=== PATIENT | male | born 2000 ===

== ENCOUNTER 2025-09-20 09:44 | Outpatient (AMB) | payer OTHER, SELFPAY ==
--- NOTE | 2025-09-20 10:01 | MHC.PC.OV ---
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: No Accompanied by: Self / Same As Patient Allergies No Known Allergies Allergy (Verified 09/20/25 10:22) Medication List - Last Reconciled 09/20/25 by KISHOR Alberts No Known Home Meds Tobacco use date assessed: 09/20/25 Dental Screening Dental Screen Date: 09/20/25 Did you have a dental visit in the last 12 months?: Yes Did you have a dental problem in the last 6 months where you did not have access to dental care?: No Was dental information given to patient?: Patient has dentist HPI HPI Comments History of Present Illness Details Previous PCP: Adult medicine, [facility] Last visit: unsure Last PE:about year ago Specialist: no-reports that he used see GI for concerns of taking too long to more his bowels Past medical history: Asthma sports induced, resolved after stopped playing, constipation Surgical history: no Medications: Family HX: Father, HTN Problem: The patient is a 25 year old individual presenting to [facility]. The last physical exam was approximately one year ago. The patient has no past surgical history and is not currently taking any medications. The patient has a history of asthma that was primarily triggered by sports when the patient was more active. Currently, the patient does not take any medication for asthma and reports that symptoms, such as coughing, can occur with a common cold. The patient reports a lifelong history of constipation, characterized by taking a long time to have a bowel movement and difficulty evacuating stool, even when it is soft. There is a history of an anal fissure, for which the patient previously saw a specialist. A previously prescribed fiber supplement improved symptoms, but the patient now takes it only sometimes. The patient reports a past history of high cholesterol, which was improving with dietary modifications. The patient's father has hypertension. Health Maintenance The patient is establishing care. Generalized lab work was ordered, including checks of kidney, liver, and heart function, as well as cholesterol levels. A follow-up visit is scheduled in approximately seven weeks to perform a complete physical and review the laboratory results. It was clarified that STD testing is not performed routinely and must be specifically requested; the patient declined this testing at this time. 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 - Family status: The patient is and has a daughter. - Exercise: The patient is not very active currently but is planning to start working out. - Nutrition: The patient reports eating rice pretty much every day, consumes fruits and vegetables, drinks some water, and consumes one Monster energy drink five days a week. Results - Labs: The patient reports a past history of high cholesterol that had been improving with dietary changes. 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 1. Little interest or pleasure in doing things: not at all 2. Feeling down, depressed, or hopeless: not at all 3. Trouble falling or staying asleep, or sleeping too much: several days 4. Feeling tired or having little energy: more than half the days 5. Poor appetite or overeating: not at all 6. Feeling bad about yourself - or that you are a failure or have let yourself or your family down: not at all 7. Trouble concentrating on things, such as reading the newspaper or watching television: not at all 8. Moving or speaking so slowly that other people could have noticed. Or the opposite - being so fidgety or restless that you have been moving around a lot more than usual: not at all 9. Thoughts that you would be better off or of hurting yourself in some way: not at all Total score: 3 Depression Screening Interpretation: Negative Depression Screening Done: Yes 13068 - PHQ-9 Billing: Yes Source: Developed by Drs. Jimbo Zazueta, Brandi Allen, Julián Bowens and colleagues, with an educational renée from [employer]. Thrive Questionnaire Date Thrive assessed: 09/20/25 I am a: Patient What is your living situation today?: I have a steady place to live Within the past 12 months, did the food you bought not last and you didn't have the money to get more?: I choose not to answer this question Within the past 12 months, did you worry whether your food would run out before you got money to buy more?: I choose not to answer this question Do you have trouble paying for medicines?: I choose not to answer this question Do you have trouble getting transportation to medical appointments?: No Do you have trouble paying your heating and electricity bill?: No Do you have trouble taking care of your child, family member or friend?: No Do you have trouble with day-to-day activities such as bathing, preparing meals, shopping, managing finances, etc.?: No Are you currently unemployed and looking for a job?: No Are you interested in more education?: Yes Please select the resources that you would like help with: Food and Childcare Currently or been in a relationship where the following occur: No concerns reported THRIVE Score: 0 AUDIT C Alcohol Use Questionnaire (AUDIT-C) 1. How often do you have a drink containing alcohol?: 2-3 times a week 2. How many drinks containing alcohol do you have on a typical day when you are drinking?: 3 or 4 3. How often do you have six or more drinks on one occasion?: Monthly Total Score: 6 KAROLINA-7 AMB Questionnaire KAROLINA-7 Date KAROLINA - 7 assessed: 09/20/25 Feeling nervous, anxious, or on edge: 1 = Several days Not being able to stop or control worryin = Several days Worrying too much about different things: 2 = More than half the days Trouble relaxin = Several days Being so restless that it is hard to sit still: 1 = Several days Becoming easily annoyed or irritable: 1 = Several days Feeling afraid as if something awful might happen: 0 = Not at all Total KAROLINA-7 score (0-4 normal; 5-9 mild; 10-14 moderate; 15-21 severe): 7 Source: Developed by Drs. Jimbo Zazueta, Brandi Allen, Julián Bowens and colleagues, with an educational renée from [employer]. KAROLINA-7 Assessment Billing KAROLINA-7 Assessment Tool: KAROLINA-7 Assessment 80184 Review of Systems Narrative Review of Systems - General: Denies any acute concerns. - Cardiovascular: Denies chest pain and palpitations. - Respiratory: Denies shortness of breath. - Gastrointestinal: Reports lifelong constipation and difficulty with bowel movements. - Denies abdominal pain or recent changes in bowel habits. - Denies rectal bleeding currently, but confirms a past history of an anal fissure. - Neurological: Denies dizziness. Const Denies headache(s) Eyes Denies loss of vision ENT Denies vertigo, Denies dizziness, Denies headache(s) and Denies sore throat Card Denies chest pain, Denies leg edema and Denies lightheadedness Resp Denies cough, Denies hemoptysis and Denies wheezing GI Denies abdominal pain, Denies melena, Denies constipation, Denies diarrhea and Denies vomiting Denies dysuria, Denies urinary frequency and Denies urinary urgency Musc Denies arthralgias, Denies joint swelling, Denies numbness and Denies tingling Neuro Denies Abnormal speech present, Denies behavioral changes, Denies vertigo, Denies dizziness, Denies headache(s), Denies loss of vision, Denies memory loss, Denies numbness and Denies tingling Psych Denies anxiety, Denies behavioral changes, Denies depression, Denies memory loss and Denies panic attacks Frantz/Lymph Denies easy bleeding and Denies easy bruising Aller/Immun Denies wheezing Physical exam (Primary Care) Vital Signs: Last Vital Signs Temp 97.3 F 09/20/25 10:02 Pulse 64 09/20/25 10:02 Resp 18 09/20/25 10:02 BP 128/70 09/20/25 10:02 Pulse Ox 98 09/20/25 10:02 Oxygen Delivery Method Room Air 09/20/25 10:02 BMI result Body Mass Index 28.1 Tobacco/Smoking Status: Tobacco use Status Tobacco use date assessed 09/20/25 09/20/25 10:10 Patient Tobacco Use Status Never used Tobacco 09/20/25 10:10 e-Cigarette/Vaping Use Never Used 09/20/25 10:10 PHQ-9: PHQ-9 Score PHQ-9: Total score 3 09/20/25 10:36 Depression Screening Interpretation: Negative Thrive Assessment: Date of Thrive Assessment Date Thrive assessed 09/20/25 09/20/25 10:10 Currently or been in a relationship where the following occur: No concerns reported Narrative Physical Exam - Eyes: Pupils are reactive to light. - Respiratory: Lungs are clear to auscultation bilaterally. - Abdomen: Soft and non-tender to palpation. Const General: healthy appearing, no acute distress, alert and awake Nutritional Appearance: well nourished Orientation/consciousness: oriented to person, oriented to place and oriented to time HENMT Ears: TM's normal bilaterally General nose exam: Normal nasal mucous membranes and turbinates present Eyes Conjunctivae: conjunctivae normal Sclerae: sclerae normal Pupils: Equal, round and reactive pupils present Neck Neck: Yes no lymphadenopathy and Yes no JVD Thyroid: Thyroid normal Carotids: no bruits Resp Effort & Inspection: normal respiratory effort and not tachypneic Auscultation: no crackles, no rales, no rhonchi and no wheezes Cardio Rate: regular rate Rhythm: regular rhythm Heart sounds: no murmurs and normal S1 and S2 GI Palpation (GI): Soft to palpation, nontender, no hepatomegaly and no splenomegaly Auscultation: normal bowel sounds Skin General skin exam: no rashes or lesions noted and dry skin Neuro General: oriented to person, oriented to place and oriented to time Cranial nerves: Yes Equal, round and reactive pupils present Speech: No Abnormal speech present Gait exam (Neuro): Normal gait present Motor exam (neuro): no tremor noted Extrem Right upper extremity: full ROM Left upper extremity: full ROM Right lower extremity: full ROM; no edema Left lower extremity: full ROM; no edema Psych Mental Status: mental status grossly normal Speech and movement: Normal speech and movement present Affect: normal affect Attitude: cooperative Thought process: Normal thought process present Coding Level of Care Code New Pt Level 4 (95889) Diagnoses Constipation, unspecified constipation type K59.00 Constipation type: unspecified constipation type Mild intermittent asthma without complication J45.20 Asthma severity: mild Asthma persistence: intermittent Asthma complication type: uncomplicated Additional Codes PHQ-9 - 77780 - PHQ-9 Billing: Yes ([id number]) KAROLINA-7 Assessment Billing - KAROLINA-7 Assessment Tool: KAROLINA-7 Assessment 36119 ([id number]) Time Spent (min) 35 Assessment & Plan Assessment & Plan (1) Constipation: Code(s): K59.00 - Constipation, unspecified Category: Medical Qualifiers: Constipation type: unspecified constipation type Qualified Code(s): K59.00 - Constipation, unspecified (2) Asthma: Code(s): J45.909 - Unspecified asthma, uncomplicated Category: Medical Qualifiers: Asthma severity: mild Asthma persistence: intermittent Asthma complication type: uncomplicated Qualified Code(s): J45.20 - Mild intermittent asthma, uncomplicated Plan Plan Patient was informed and verbally consented to the use of an ambient scribe for clinic note documentation during this visit. 1. Chronic Constipation The patient's chronic constipation is likely multifactorial, including a lifelong predisposition and a diet high in rice. A prescription for Miralax powder was sent, with instructions to take one capful mixed in liquid daily to maintain regularity. The patient was advised that the dose can be increased to twice daily if needed, and to prioritize consistent daily use rather than waiting for symptoms to develop. 2. Asthma The patient has a history of asthma, primarily exacerbated by physical activity. As the patient plans to start working out, an as-needed inhaler was prescribed. The patient was advised to use the inhaler 15 minutes prior to exercise to prevent symptoms. 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 Discussion Notes I discussed the patient's history of chronic constipation and its likely association with a high-starch diet, specifically daily rice intake. I recommended daily Miralax use to maintain regularity and prevent episodes of constipation, advising to start with one dose and titrate as needed. We also addressed the patient's history of asthma, which is primarily exercise-induced. Given the patient's plan to resume physical activity, I prescribed an as-needed inhaler and instructed on its prophylactic use 15 minutes before exercise. 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 I explained that I have ordered general lab work to establish a baseline for the patient's health, including cholesterol, kidney, and liver function. I clarified that STD testing is not included in routine labs and must be specifically requested, which the patient understood and declined for today's visit. We will follow up in about seven weeks to review the results and conduct a complete physical. Patient Instructions - Go to a laboratory to have your blood drawn for the tests we ordered. - A prescription for Miralax powder has been sent to your pharmacy. - Please take it once a day by mixing one capful in water or juice to help with constipation. - A prescription for an asthma inhaler has also been sent. - You can use this if you have asthma symptoms, and it is recommended to use it 15 minutes before you start exercising. - You will receive a call to schedule a pulmonary function test (a breathing test). - Please schedule a follow-up appointment in about 7 weeks to discuss your lab results and have a complete physical exam. Orders: Orders Lipid Panel Today Z00.00 - Encounter for general adult medical examination without abnormal findings Vitamin D 25-OH Total Today Z00.00 - Encounter for general adult medical examination without abnormal findings Complete Blood Count Auto Diff Today Z00.00 - Encounter for general adult medical examination without abnormal findings Comprehensive [place]. Panel Fast Today Z00.00 - Encounter for general adult medical examination without abnormal findings UA CC w/rflx Micro + Cult Today Z00.00 - Encounter for general adult medical examination without abnormal findings TSH reflex Free T4 Today Z00.00 - Encounter for general adult medical examination without abnormal findings PFT pulmonary function test Today J45.909 - Unspecified asthma, uncomplicated Medications: New polyethylene glycol 3350 (Miralax) 17 grams PO DAILY 238 grams 3RF albuterol sulfate 90 mcg/actuation (Ventolin HFA) 2 puffs inhalation Q4-6H PRN 8.5 grams 3RF shortness of breath or wheezing
[2025-09-20 10:02] VITALS: BP 128/70; PULSE 64; RESP 18; TEMP 36.3; O2SAT 98; BMI 28.1
--- OUTSIDE RECORDS SUMMARY | 2025-09-20 11:25 | XMS_ITS | Clinical Summary ---
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 [employer] Name Role Phone Physician, Pcp Unknown Primary Care Provider Cathleen vailable Allergies No known active allergies Medical History Medical History Date Comments Asthma Social History Tobacco Use Types Packs/Day Years Used Date Smoking Tobacco: Never Smokeless Tobacco: Current Tobacco Cessation:Ready to Q uit: Not Asked; Counseling Given: Not Answered Alcohol Use Standard Drinks/Week Comments Never 0 (1 standard drink = 0.6 oz pur e alcohol) Sex and Gender Information Value Date Recorded Sex Assigned at Male 11/13/2024 7:01 PM EST Legal Sex Male 1:39 PM EDT Gender Identity Male 11/13/2024 7:01 PM EST Sexual Orientation Not on file Obstetrics History Last Filed Vital Signs Vital Sign Reading Time Taken Comments Blood Pressure 129/83 02/07/2025 2:08 PM EDT Pulse 91 02/07/2025 2:08 PM EDT Temperature 36.8 C (98.2 F) 02/07/2025 2:08 PM EDT Respiratory Rate 18 02/07/2025 2:08 PM EDT Oxygen Saturation 100% 02/07/2025 2:08 PM EDT Inhaled Oxygen Concentration - - Weight 82.6 kg (182 lb 1.6 oz) 02/07/2025 2:08 P M EDT Height 170.2 cm (5' 7 ) 02/07/2025 2:08 PM EDT Body Mass Index 28.52 02/07/2025 2:08 PM EDT Plan of Treatment Health Maintenance Due Date Last Done Comments HPV Vaccines (1 - Male 3-dos e series) 2014 Hepatitis A Vaccines (1 of 2 - Risk 2-dose series) 2018 Hepatitis B Vaccines (1 of 3 - 19+ 3-dose series) 2018 Pneumococcal Vaccine: Pediat rics (0 to 5 Years) and At-Risk Patients (6 to 49 Years) (1 of 2 - PCV) 2018 Cholesterol Screening (Lipid Panel) 05/20/2024 HIV Screening 05/20/2024 Hepatitis C Screening 05/20/2024 Social Influencers of Health Screening 05/20/2024 Depression Screening 10/28/2024 COVID-19 Vaccine (1 - 2024-2 6 season) 2025 Influenza Vaccine (#1) 2025 08/31/2024 DTaP,Tdap,and Td Vaccines (2 - Td or Tdap) 11/19/2034 11/19/2024 RSV Immunization Adult Patie nts (1 - 1-dose 75+ series) 2074 HIB Vaccines Aged Out No longer eligi ble based on patient's age to complete this topic IPV Vaccines Aged Out No longer eligi ble based on patient's age to complete this topic MMR Vaccines Aged Out No longer eligi ble based on patient's age to complete this topic Meningococcal ACWY Vaccine Aged Out N o longer eligible based on patient's age to complete this topic Meningococcal B Vaccine Aged Out No l onger eligible based on patient's age to complete this topic RSV Immunization Patients Un maciej 20 months Aged Out No longer eligible b ased on patient's age to complete this topic Varicella Vaccines Aged Out No longer eligible based on patient's age to complete this topic Insurance [employer] Care Teams Welder Oxyhydrogen Relationship Specialty Start Date End Date Physician, Pcp Unknown PCP - General 11/13/24
== END 2025-09-20 10:49 | disposition home or self-care (01) ==
LOC: HO.HMCH 09:45
DX: K59.00 Constipation, unspecified (principal); J45.20 Mild intermittent asthma, uncomplicated

== ENCOUNTER → 2025-09-20 09:44 | Outpatient (BNVA) | payer OTHER, SELFPAY | PROVIDERS: PCP Pediatrics Adolescent Medicine | DX: J45.20 Mild intermittent asthma, uncomplicated (principal); K59.00 Constipation, unspecified | CPT/HCPCS: 96127 ==